=== PATIENT | female | born 1975 | race Caucasian/White ===

== ENCOUNTER 2016-11-21 02:39 | Emergency (ER) | payer SELFPAY ==
[2016-11-21] MEDS ORDERED: IPRATROPIUM/ALBUTEROL (0.5MG/3MG) NEB INH ONE (02:55)
[2016-11-21] MEDS ORDERED: PREDNISONE 20 MG TAB PO ONE (02:55)
[2016-11-21] MEDS ORDERED: BENZONATATE 100 MG CAPSULE PO ONE (02:56)
--- NOTE | 2016-11-21 03:02 | Emergency Department Record ---
History of Present Illness - General Chief Complaint: Cough Stated Complaint: COUGH Time Seen by Provider: 11/21/16 02:55 Source: Patient Mode of Arrival: Ambulatory Limitations: No limitations - History of Present Illness Initial Comments: 40 yo female presents to ED with a CC of cough symptoms associated with difficulty breathing. Patient reports that her symptoms began yesterday, deneis fevers but does reports a history of "exercise induced asthma". MD Complaint: Cough Onset/Timin -: Days(s) Severity scale (1-10): 5 Consistency: Constant Improves With: Nothing Worsens With: Deep breaths Context: Sick contacts Treatments Prior to Arrival: None - Related Data Home Medications Medication Instructions Recorded Confirmed Last Taken Levothyroxine Sodium [Levoxyl] 200 mcg PO DAILY 10/21/15 11/21/16 11/20/16 Dextroamphetamine/Amphetamine 30 mg PO DAILY 11/21/16 11/21/16 11/20/16 [Adderall Xr] Previous Rx's Medication Instructions Recorded Albuterol Sulfate [Proair Hfa] 2 puff IH QID PRN #1 inhaler 06/30/16 Albuterol Sulfate [Proair Hfa] 1 - 2 puff IH .EVERY 4-6 HOURS PRN 11/21/16 #1 inhaler Benzonatate [Tessalon] 2 cap PO Q8H PRN #30 cap 11/21/16 Prednisone [Prednisone 20Mg] 20 mg PO TID #12 tab 11/21/16 Allergies Allergy/AdvReac Type Severity Reaction Status Date / Time Iodinated Contrast Media - Allergy Severe ANAPHYLAXIS Verified 06/30/16 17:54 Oral and [Iodinated Contrast Media - IV Dye] Travel Screening - Travel/Exposure Within Last 30 Days Have you traveled within the last 30 days?: No - Travel Symptoms Symptom Screening: None Review of Systems Constitutional: Denies: Chills, Fever, Malaise, Night sweats Eyes: Denies: Eye discharge, Eye pain, Photophobia ENT: Reports: Congestion. Denies: Epistaxis, Throat pain Respiratory: Reports: Cough, Dyspnea, Wheezes Cardiovascular: Denies: Chest pain, Dyspnea on exertion, Palpitations Endocrine: Denies: Fatigue, Heat or cold intolerance Gastrointestinal: Denies: Abdominal pain, Nausea, Vomiting Genitourinary: Denies: Dysuria, Frequency, Hematuria Musculoskeletal: Denies: Arthralgia, Back pain, Gout, Joint swelling Skin: Denies: Bruising, Change in hair/nails Neurological: Denies: Abnormal gait, Confusion, Seizure Psychiatric: Denies: Anxiety Hematological/Lymphatic: Denies: Anemia, Blood Clots Past Medical History - SOCIAL HISTORY Smoking Status: Current every day smoker - RESPIRATORY Hx Respiratory Disorders: No - CARDIOVASCULAR Hx Cardio Disorders: Yes Comment:: Wearing a heart moniter because she was "passing out" - NEURO Hx Neuro Disorders: No - GI Hx GI Disorders: Yes Hx Hiatal Hernia: Yes - Hx Genitourinary Disorders: Yes Comment:: PCOS - ENDOCRINE Hx Endocrine Disorders: No Hx Diabetes: Yes (PREDIABETIC) Hx Thyroid Disease: Yes ([facility]'S) - MUSCULOSKELETAL Hx Musculoskeletal Disorders: Yes Hx Fibromyalgia: Yes Comment:: DJD, ULNAR NEUROPATHY, Herniated Disc-neck - PSYCH Hx Psych Problems: Yes Comment:: ADD - HEMATOLOGY/ONCOLOGY Hx Hematology/Oncology Disorders: No Family Medical History Any Significant Family History?: Yes Family Hx Comment (NOT TO BE USED IN PLACE OF ITEMS BELOW): LUPUS, ARTHRITIS Hx Cancer: Grandparents Hx Diabetes: Grandparents Physical Exam - General General Appearance: Alert, Oriented x3, Cooperative, Moderate distress Limitations: No limitations - Head Head exam: Atraumatic, Normocephalic, Normal inspection Head exam detail: negative: Abrasion, Contusion, Gaxiola's sign, General tenderness, Hematoma, Laceration - Eye Eye exam: Normal appearance. negative: Conjunctival injection, Periorbital swelling, Periorbital tenderness, Scleral icterus - ENT Ear exam: negative: Auricular hematoma, Auricular trauma Nasal Exam: negative: Active bleeding, Discharge, Dried blood, Foreign body Mouth exam: negative: Drooling, Laceration, Muffled voice, Tongue elevation - Neck Neck exam: Normal inspection. negative: Meningismus, Tenderness - Respiratory Respiratory exam: Decreased breath sounds, Respiratory distress, Wheezes. negative: Rales, Rhonchi, Stridor - Cardiovascular Cardiovascular Exam: Normal rhythm, Normal heart sounds, Tachycardia - GI/Abdominal GI/Abdominal exam: Soft. negative: Rebound, Rigid, Tenderness - Rectal Rectal exam: Deferred - exam: Deferred - Extremities Extremities exam: Normal inspection. negative: Calf tenderness, Pedal edema, Tenderness - Back Back exam: Denies: CVA tenderness (R), CVA tenderness (L) - Neurological Neurological exam: Alert, Normal gait, Oriented X3 - Psychiatric Psychiatric exam: Normal affect, Normal mood - Skin Skin exam: Normal color. negative: Abrasion Type of lesion: negative: abrasion Course Vital Signs 11/21/16 02:44 Temperature 97.6 F Pulse Rate 118 H Respiratory 72 H Rate Blood Pressure 136/97 Pulse Ox 97 - Reevaluation(s) Reevaluation #1: 11/21/16 03:31 CXR: No acute process Patient was updated on the results of her imaging, reports some improvement in her symptoms, RR greatly improved. On examination, patient is taking short, shallow breaths but is able to slow her breathing down to a near regular pace with encouragement. Patient denies chest pain or pleuritic symptoms, and reports only cough, congestion, and body aches as her may symptoms. Patient's symptoms are not consistent with PE, and appears consistent with URI resulting in mild bronchospasm. Patient's symptoms appears c/w bronchitis, and she appears stable for discharge at this time with Prednisone, albuterol, and tessalon perles for her cough symptoms. 11/21/16 05:42 Disposition Disposition: Discharge Clinical Impression: Bronchitis Disposition: Home, Self-Care Condition: (2) Stable Instructions: Acute Bronchitis (ED) Additional Instructions: Return to ED if your symptoms worsen or if you have any concerns. Prednisone, albuterol, and tessalon as directed. Follow-up with your family doctor in 3-5 days as directed Prescriptions: Prednisone [Prednisone 20Mg] 20 mg PO TID #12 tab Albuterol Sulfate [Proair Hfa] 1 - 2 puff IH .EVERY 4-6 HOURS PRN #1 inhaler PRN Reason: Difficulty In Breathing Benzonatate [Tessalon] 2 cap PO Q8H PRN #30 cap PRN Reason: Cough Forms: Patient Portal Access Time of Disposition: 03:32
--- NOTE | 2016-11-22 10:26 | RADIOLOGY REPORT ---
EXAM: CHEST, TWO VIEWS HISTORY: COUGH. TECHNIQUE: Frontal and lateral views of the chest were obtained. Comparison: Prior chest from 06/30/16. FINDINGS: The heart size is normal. The lungs are clear. No pneumothorax. IMPRESSION: NEGATIVE CHEST EXAMINATION. JOB NUMBER: [id number]
== END 2016-11-21 03:43 | disposition home or self-care (01) ==
LOC: ER 02:39
DX: J20.9 Acute bronchitis, unspecified (principal); R06.00 Dyspnea, unspecified; F17.210 Nicotine dependence, cigarettes, uncomplicated
CPT/HCPCS: 99283 ×2; 71020; 94640; J7512

== ENCOUNTER 2016-11-22 02:41 | Emergency (ER) | payer SELFPAY ==
[2016-11-22 03:16] LABS: BASO % 0.2 % (0-6); EOS % 2.2 % (0-6); GRAN % 78.1 % (47-80); HEMATOCRIT 44.9 % (35.0-47.0); HEMOGLOBIN 14.9 gm/dl (11.6-16.0); LYMPH % 10.5 % (16-45); MEAN CELL VOLUME 90.3 fl (81-97); MEAN CORPUSCULAR HGB CONC 33.2 g/dl (32-36); MEAN PLATELET VOLUME 10.3 fl (7.4-10.4); PLATELET COUNT 200 K/uL (130-400); RED BLOOD COUNT 4.97 M/uL (3.80-5.40); RED CELL DISTRIBUTION WIDTH 13.9 % (11.5-14.5); WHITE BLOOD COUNT W/O DIFF 6.3 K/uL (4.2-12.2)
[2016-11-22] MEDS ORDERED: IPRATROPIUM/ALBUTEROL (0.5MG/3MG) NEB INH ONE (03:22)
[2016-11-22 03:26] LABS: ALB/GLOB RATIO 1.5 (1.1-1.8); ALBUMIN 4.3 gm/dL (3.5-5.0); ALKALINE PHOSPHATASE 88 U/L (38-126); ALT/SGPT 32 U/L (9-52); ANION GAP 13.7 (7-16); AST/SGOT 22 U/L (14-36); BILIRUBIN,TOTAL 0.25 mg/dL (0.2-1.3); BLOOD UREA NITROGEN 10 mg/dL (7-17); CARBON DIOXIDE 21.3 mmol/L (22-30); CREATININE 0.6 mg/dL (0.52-1.04); EST GLOMERULAR FILTRATION RATE > 60 ml/min; GLUCOSE,RANDOM 139 mg/dL (70-110); TOTAL PROTEIN 7.2 gm/dL (6.3-8.2)
--- NOTE | 2016-11-22 03:28 | Emergency Department Record ---
History of Present Illness - General Chief Complaint: Recheck - Other Stated Complaint: RECHECK Time Seen by Provider: 11/22/16 02:53 Source: Patient Mode of arrival: Ambulatory Limitations: No limitations - History of Present Illness Initial Comments: 40 yo female presents to ED with a CC of CCof continued difficulty breathing since being seen yesterday morning for presumed bronchitis. Patient reports continued congestion symptoms, cough, and difficulty breathing. Patient reports a history of asthma as well. Patient reports minimal improvement since starting prednisone yesterday morning. MD Complaint: Other Onset/Timin -: Days(s) Returns Today for: Other Symptoms Since Prior Visit: No new symptoms, Other Associated Symptoms: Shortness of breath, Other - Related Data Home Medications Medication Instructions Recorded Confirmed Last Taken Levothyroxine Sodium [Levoxyl] 200 mcg PO DAILY 10/21/15 11/21/16 11/21/16 Dextroamphetamine/Amphetamine 30 mg PO DAILY 11/21/16 11/21/16 11/21/16 [Adderall Xr] Previous Rx's Medication Instructions Recorded Albuterol Sulfate [Proair Hfa] 2 puff IH QID PRN #1 inhaler 06/30/16 Albuterol Sulfate [Proair Hfa] 1 - 2 puff IH .EVERY 4-6 HOURS PRN 11/21/16 #1 inhaler Benzonatate [Tessalon] 2 cap PO Q8H PRN #30 cap 11/21/16 Prednisone [Prednisone 20Mg] 20 mg PO TID #12 tab 11/21/16 Azithromycin [Zithromax] 250 mg PO DAILY #4 tab 11/22/16 Allergies Allergy/AdvReac Type Severity Reaction Status Date / Time Iodinated Contrast Media - Allergy Severe ANAPHYLAXIS Verified 11/22/16 02:49 Oral and [Iodinated Contrast Media - IV Dye] Travel Screening - Travel/Exposure Within Last 30 Days Have you traveled within the last 30 days?: No - Travel/Exposure Within Last Year Have you traveled outside the [place] in the last year?: No - Additonal Travel Details Have you been exposed to anyone with a communicable illness?: No - Travel Symptoms Symptom Screening: None Review of Systems Constitutional: Denies: Chills, Fever, Malaise, Night sweats Eyes: Denies: Eye discharge, Eye pain ENT: Reports: Congestion. Denies: Ear pain, Epistaxis, Throat pain Respiratory: Reports: Cough, Dyspnea. Denies: Wheezes Cardiovascular: Denies: Chest pain, Dyspnea on exertion, Palpitations Endocrine: Denies: Fatigue, Heat or cold intolerance Gastrointestinal: Denies: Abdominal pain, Nausea, Vomiting Genitourinary: Denies: Dysuria, Frequency, Hematuria, Incontinence Musculoskeletal: Denies: Arthralgia, Back pain, Gout, Joint swelling Skin: Denies: Bruising, Change in color Neurological: Denies: Abnormal gait, Confusion, Headache, Seizure Psychiatric: Denies: Anxiety Hematological/Lymphatic: Denies: Anemia, Blood Clots Past Medical History - SOCIAL HISTORY Smoking Status: Current every day smoker Alcohol Use: None Drug Use: None - RESPIRATORY Hx Respiratory Disorders: Yes Hx Asthma: Yes (physical labor induced) - CARDIOVASCULAR Hx Cardio Disorders: Yes Comment:: Wearing a heart moniter because she was "passing out" 2015 - NEURO Hx Neuro Disorders: No - GI Hx GI Disorders: Yes Hx Reflux: Yes Hx Hiatal Hernia: Yes - Hx Genitourinary Disorders: Yes Hx UTI: Yes Comment:: polycystic ovarian syndrom - ENDOCRINE Hx Endocrine Disorders: No Hx Diabetes: Yes (PREDIABETIC) Hx Thyroid Disease: Yes ([facility]'S) - MUSCULOSKELETAL Hx Musculoskeletal Disorders: Yes Comment:: DJD, ULNAR NEUROPATHY, Heniated Disc - PSYCH Hx Psych Problems: Yes Comment:: ADD - HEMATOLOGY/ONCOLOGY Hx Hematology/Oncology Disorders: No Family Medical History Any Significant Family History?: Yes Family Hx Comment (NOT TO BE USED IN PLACE OF ITEMS BELOW): LUPUS, ARTHRITIS Hx Cancer: Grandparents Hx Diabetes: Grandparents Physical Exam - General General Appearance: Alert, Oriented x3, Cooperative, Mild distress, Other ( laughing, conversational, but dyspnic on examination) Limitations: No limitations - Head Head exam: Atraumatic, Normocephalic, Normal inspection Head exam detail: negative: Abrasion, Contusion, Gaxiola's sign, General tenderness, Hematoma, Laceration - Eye Eye exam: Normal appearance. negative: Conjunctival injection, Periorbital swelling, Periorbital tenderness, Scleral icterus - ENT Ear exam: negative: Auricular hematoma, Auricular trauma Nasal Exam: negative: Active bleeding, Discharge, Dried blood, Foreign body Mouth exam: negative: Drooling, Laceration, Muffled voice, Tongue elevation - Neck Neck exam: Normal inspection. negative: Meningismus, Tenderness - Respiratory Respiratory exam: Normal lung sounds bilaterally, Respiratory distress. negative: Prolonged expiratory, Rhonchi, Stridor, Wheezes - Cardiovascular Cardiovascular Exam: Regular rate, Normal rhythm, Normal heart sounds - GI/Abdominal GI/Abdominal exam: Soft. negative: Rebound, Rigid, Tenderness - Rectal Rectal exam: Deferred - exam: Deferred - Extremities Extremities exam: Normal inspection. negative: Calf tenderness, Pedal edema, Tenderness - Back Back exam: Reports: Normal inspection. Denies: CVA tenderness (R), CVA tenderness (L) - Neurological Neurological exam: Alert, Normal gait, Oriented X3 - Psychiatric Psychiatric exam: Normal affect, Normal mood - Skin Skin exam: Normal color. negative: Abrasion Type of lesion: negative: abrasion Course Vital Signs 11/22/16 02:47 Temperature 98.2 F Pulse Rate [ 98 H Pulse Ox Probe] Respiratory 60 H Rate Blood Pressure 135/92 [Right Arm] Pulse Ox 96 - Reevaluation(s) Reevaluation #1: 11/22/16 03:28 EKG: NSR 87, normal axis normal intervals no acute ST-T wave changes present. Reevaluation #2: 11/22/16 03:37 Labs reviewed, D-Dimer is 0.51, labs are grossly unremarkable for an acute process. Reevaluation #3: 11/22/16 04:08 Patient was updated on all results, due to minimally elevated D-dimer, will transfer for nuclear medicine testing. Zithromax sent to pharmacy for the patient as well. Patient is waiting to hear back from her SO so that he can drive her there. Reevaluation #4: 11/22/16 04:27 Patient sleeping, RR down to 24 from 45(60) previously. Awaiting patient's SO to return call to facilitate transfer. Reevaluation #5: 11/22/16 04:39 Case was discussed with Dr. Mcclendon, will accept ER-ER transfer for nuclear medicine scan. Medical Decision Making - Lab Data Result diagrams: 11/22/16 03:11 11/22/16 03:11 Lab Results 11/22/16 Range/Units 03:11 WBC 6.3 (4.2-12.2) K/uL RBC 4.97 (3.80-5.40) M/uL Hgb 14.9 (11.6-16.0) gm/dl Hct 44.9 (35.0-47.0) % MCV 90.3 (81-97) fl MCH 30.0 (27-33) pg MCHC 33.2 (32-36) g/dl RDW 13.9 (11.5-14.5) % Plt Count 200 (130-400) K/uL MPV 10.3 (7.4-10.4) fl Gran % 78.1 (47-80) % Lymphocytes % 10.5 L (16-45) % Monocytes % 9.0 (0-9) % Eosinophils % 2.2 (0-6) % Basophils % 0.2 (0-6) % Disposition Disposition: Transfer Clinical Impression: Bronchitis, Elevated d-dimer Disposition: Acute Care Hospital Transfer Transfer To: [facility] Reason For Transfer: Elevated D-dimer, nuclear medicine scan Accepting Physician: Hakan Martinez Discussed w/Accepting Physician: 04:41 Condition: (2) Stable Prescriptions: Azithromycin [Zithromax] 250 mg PO DAILY #4 tab Forms: Patient Portal Access
[2016-11-22] MEDS ORDERED: LORAZEPAM 2 MG/ML VIAL IV ONE (03:38)
[2016-11-22] MEDS ORDERED: AZITHROMYCIN 500 MG TABLET PO ONE (04:08)
== END 2016-11-22 05:11 | disposition short-term general hospital (02) ==
LOC: ER 02:41
DX: J20.9 Acute bronchitis, unspecified (principal); R79.89 Other specified abnormal findings of blood chemistry; R06.00 Dyspnea, unspecified; F17.210 Nicotine dependence, cigarettes, uncomplicated
CPT/HCPCS: 99285 ×2; 96374; 85025; 80053; 84443; 85379; 94640; 93005; 93010; J2060